=== PATIENT | male | born 1955 | race Caucasian/White ===

== ENCOUNTER 2018-06-15 08:01 | Outpatient (CLI) ==
--- NOTE | 2018-06-15 08:55 | US ---
EXAM: Left breast ultrasound. History: Left breast infection. Technique: Multiple sonographic images through the left breast were obtained. Color duplex Doppler was used to interrogate vascular flow. Findings: At 12 o'clock 3 cm from nipple there is a 1.3 cm x 0.9 cm x 0.2 cm collection of fluid wit hin the skin of the left breast with surrounding hyperemia. Impression: A small abscess within the skin of the left breast.
== END 2018-06-15 08:02 | disposition home or self-care (01) ==
LOC: RAD 08:01
PROVIDERS: ATTEND Family Medicine
DX: S21.002A Unspecified open wound of left breast, initial encounter (principal)

== ENCOUNTER 2019-01-27 18:25 | Outpatient (CLI) | END 2019-01-27 18:26 | disposition home or self-care (01) | LOC: LAB 18:25 | PROVIDERS: ATTEND Family Medicine | DX: D64.9 Anemia, unspecified (principal); K92.1 Melena | CPT/HCPCS: 36415; 83540; 85008; 85025 ==